=== PATIENT | female | born 1975 | race Caucasian/White ===

== ENCOUNTER 2017-02-12 02:23 | Emergency (ER) | payer MEDICAID ==
[~2017-02-12] VITALS: Ht 162.6 cm; Wt 65.8 kg
--- NOTE | 2017-02-12 03:43 | NUR ---
Pt seen by MD. Pelvic completed. Tampon removed. Pt stable for discharge per MD. Pt given ACI. Pt verbalized understanding of dc instructions. 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
[2017-02-12 03:46] VITALS: BP 112/65
== END 2017-02-12 03:47 | disposition home or self-care (01) ==
LOC: ER 02:29
DX: T19.2XXA Foreign body in vulva and vagina, initial encounter (principal); X58.XXXA Exposure to other specified factors, initial encounter; Y93.89 Activity, other specified; Y99.8 Other external cause status; Y92.89 Other specified places as the place of occurrence of the external cause
CPT/HCPCS: A4663